=== PATIENT | male | born 1940 | race Caucasian/White ===

== ENCOUNTER 2019-05-04 08:29 | Outpatient (CLI) | payer OTHER ==
[~2019-05-04] VITALS: Ht 198.1 cm; Wt 62.1 kg
[2019-05-04] MEDS ORDERED: albuterol 2.5 MG/3 ML nebule NEB ONE (09:05)
== END 2019-05-04 23:59 | disposition home or self-care (01) ==
LOC: RT 08:29
PROVIDERS: ATTEND Orthopaedic Surgery
DX: C34.90 Malignant neoplasm of unspecified part of unspecified bronchus or lung (principal); J98.8 Other specified respiratory disorders
CPT/HCPCS: 94060; 94760